=== PATIENT | female | born 1960 | race Caucasian/White ===

== ENCOUNTER → 2019-07-14 | Outpatient (CLI) | payer BC ==
--- NOTE | 2019-07-15 01:21 | MR ---
EXAMINATION TYPE: MR knee RT wo con DATE OF EXAM: 07/14/2019 COMPARISON: None HISTORY: Pain in right knee TECHNIQUE: Multiplanar, multisequence imaging of the right knee is performed without IV contrast. FINDINGS: There is metal artifact from previous ligament reconstructive surgery in the distal femur and proxima l tibia. The posterior cruciate ligament is intact. Anterior cruciate ligament is not identified. The re are large popliteal cysts. There is moderate narrowing of the medial joint space. There is signifi cant thinning of the medial meniscus. There is complex tear of the posterior horn medial meniscus. Th ere is degenerative thinning and displacement of the anterior horn medial meniscus. The lateral menis cus appears intact. The collateral ligaments appear intact. There is small subchondral cystic change on both sides of the medial joint space. There is no evidence for fracture. There is mild knee joint effusion. Patellofemoral joint is intact. 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 Old rec onstructive surgery. Anterior cruciate ligament not identified. Complete tear anterior cruciate ligam ent. No fracture. Knee joint effusion and large 6.5 x 2.5 cm popliteal cyst.
== END | disposition home or self-care (01) ==
LOC: RADMRIMAIN 17:04
PROVIDERS: ATTEND Orthopaedic Surgery
DX: M17.11 Unilateral primary osteoarthritis, right knee (principal); S83.241A Other tear of medial meniscus, current injury, right knee, initial encounter; S83.511A Sprain of anterior cruciate ligament of right knee, initial encounter; Z98.890 Other specified postprocedural states